=== PATIENT | male | born 1955 | race Caucasian/White ===

== ENCOUNTER 2022-03-30 07:51 | Outpatient (RCR) | payer OTHER | END 2022-04-06 | LOC: M ST 07:51 | PROVIDERS: ATTEND Nurse Practitioner Family | DX: R47.01 Aphasia (principal) ==

== ENCOUNTER 2022-05-05 14:18 | Outpatient (RCR) | payer OTHER | END 2022-05-06 | LOC: M ST 14:18 | PROVIDERS: ATTEND Nurse Practitioner Family | DX: R47.01 Aphasia (principal) ==

== ENCOUNTER 2022-06-03 14:04 | Outpatient (RCR) | payer MEDICARE, OTHER | END 2022-06-06 | LOC: M ST 14:04 | PROVIDERS: ATTEND Nurse Practitioner Family | DX: R47.01 Aphasia (principal) ==

== ENCOUNTER 2022-06-16 13:28 | Outpatient (RCR) | payer OTHER | END 2022-07-07 | LOC: M ST 13:28 | PROVIDERS: ATTEND Nurse Practitioner Family | DX: R47.01 Aphasia (principal) ==

== ENCOUNTER 2022-10-05 13:56 | Outpatient (RCR) | payer OTHER | END 2022-10-06 | LOC: M ST 13:56 | PROVIDERS: ATTEND Nurse Practitioner Family | DX: R47.01 Aphasia (principal) ==

== ENCOUNTER 2022-11-04 14:54 | Outpatient (RCR) | payer OTHER | END 2022-11-06 | LOC: M ST 14:54 | PROVIDERS: ATTEND Nurse Practitioner Family | DX: R47.01 Aphasia (principal) ==

== ENCOUNTER 2022-11-25 14:24 | Outpatient (RCR) | payer OTHER | END 2022-12-07 | LOC: M ST 14:24 | PROVIDERS: ATTEND Nurse Practitioner Family | DX: R47.01 Aphasia (principal) ==

== ENCOUNTER 2022-12-27 12:30 | Outpatient (RCR) | payer OTHER | END 2023-01-04 | LOC: M ST 12:30 | PROVIDERS: ATTEND Nurse Practitioner Family | DX: R47.01 Aphasia (principal) ==

== ENCOUNTER → 2022-12-27 | Outpatient (CLI) | payer OTHER, MEDICARE | LOC: M RAD 13:41 | PROVIDERS: ATTEND Physician Assistant | DX: R55 Syncope and collapse (principal); I65.23 Occlusion and stenosis of bilateral carotid arteries ==

== ENCOUNTER → 2023-02-04 | Outpatient (RCR) | payer OTHER | LOC: M ST 01-12 13:35 | PROVIDERS: ATTEND Nurse Practitioner Family | DX: R47.01 Aphasia (principal) ==

== ENCOUNTER → 2023-02-11 | Outpatient (CLI) | payer MEDICARE, OTHER ==
[2023-02-11 11:16] LABS: FOLATE 10.3 NG/ML (>5.4)
[2023-02-11 11:51] LABS: THYROID STIMULATING HORMONE 1.885 uIU/ML (0.55-4.78)
[2023-02-20 23:14] LABS: ACETYLCHOLINE RCPTOR BINDING A < 0.03 nmol/L (0.00-0.24); STRIATIONAL ANTIBODIES Negative (Neg:<1:100); VITAMIN B1 LEVEL WHOLE BLOOD 135.8 nmol/L (66.5-200.0)
== END ==
LOC: M LAB 09:14
PROVIDERS: ATTEND Psychiatry & Neurology Neurology
DX: R47.9 Unspecified speech disturbances (principal)

== ENCOUNTER → 2023-02-15 | Outpatient (REF) | payer OTHER | LOC: M LAB REF 15:16 | PROVIDERS: ATTEND Psychiatry & Neurology Neurology | DX: R47.9 Unspecified speech disturbances (principal) ==

== ENCOUNTER 2023-03-03 13:54 | Outpatient (RCR) | payer OTHER | END 2023-03-06 | LOC: M ST 13:54 | PROVIDERS: ATTEND Nurse Practitioner Family | DX: R47.01 Aphasia (principal) ==

== ENCOUNTER 2023-03-25 12:50 | Outpatient (RCR) | payer OTHER | END 2023-04-06 | LOC: M ST 12:50 | PROVIDERS: ATTEND Nurse Practitioner Family | DX: R47.01 Aphasia (principal) ==

== ENCOUNTER 2023-05-05 12:00 | Outpatient (RCR) | payer OTHER | END 2023-05-06 | LOC: M ST 12:00 | PROVIDERS: ATTEND Nurse Practitioner Family | DX: R47.01 Aphasia (principal) ==

== ENCOUNTER 2023-06-03 15:00 | Outpatient (RCR) | payer OTHER | END 2023-06-06 | LOC: M ST 15:00 | PROVIDERS: ATTEND Nurse Practitioner Family | DX: R47.01 Aphasia (principal) ==

== ENCOUNTER 2023-06-09 14:04 | Outpatient (RCR) | payer OTHER | END 2023-07-07 | LOC: M ST 14:04 | PROVIDERS: ATTEND Nurse Practitioner Family | DX: R47.01 Aphasia (principal) ==

== ENCOUNTER → 2023-08-29 | Outpatient (CLI) | payer OTHER, MEDICARE | LOC: M PLAIMG 12:46 | PROVIDERS: ATTEND Nurse Practitioner Family | DX: M19.012 Primary osteoarthritis, left shoulder (principal); M25.512 Pain in left shoulder ==

== ENCOUNTER 2023-09-05 11:00 | Outpatient (RCR) | payer OTHER | END 2023-09-06 | LOC: M ST 11:00 | PROVIDERS: ATTEND Nurse Practitioner Family | DX: R47.01 Aphasia (principal) ==

== ENCOUNTER → 2023-10-06 | Outpatient (RCR) | payer OTHER | LOC: M ST 09-13 11:48 | PROVIDERS: ATTEND Nurse Practitioner Family | DX: R47.01 Aphasia (principal) ==

== ENCOUNTER 2023-11-02 12:30 | Outpatient (RCR) | payer OTHER | END 2023-11-06 | LOC: M ST 12:30 | PROVIDERS: ATTEND Nurse Practitioner Family | DX: R47.01 Aphasia (principal) ==

== ENCOUNTER 2023-11-14 13:10 | Outpatient (RCR) | payer OTHER | END 2023-12-07 | LOC: M ST 13:10 | PROVIDERS: ATTEND Nurse Practitioner Family | DX: R47.01 Aphasia (principal) ==